=== PATIENT | female | born 1980 | race Caucasian/White ===

== ENCOUNTER 2025-04-11 14:01 | Emergency (ER) | payer MEDICAID ==
[~2025-04-11] VITALS: Ht 167.6 cm; Wt 68.0 kg
[2025-04-11 14:03] VITALS: O2SAT 97
[2025-04-11 14:54] LABS: *AMPHETAMINES SCREEN URINE PRESUMPTIVE POSITIVE (NEGATIVE); *BARBITURATES SCREEN URINE NEGATIVE (NEGATIVE); *BENZODIAZEPINES SCREEN URINE PRESUMPTIVE POSITIVE (NEGATIVE); *COCAINE SCREEN URINE NEGATIVE (NEGATIVE); CANNABINOID URINE SCREEN PRESUMPTIVE POSITIVE (NEGATIVE); ECSTASY MDMA SCREEN URINE NEGATIVE (NEGATIVE); METHADONE URINE SCREEN NEGATIVE (NEGATIVE); OPIATES URINE SCREEN NEGATIVE (NEGATIVE); PHENCYCLIDINE URINE SCREEN PRESUMTIVE POSITIVE (NEGATIVE)
[2025-04-11 15:28] LABS: BASOPHILS % 0.2 % (0.0-2.0); EOSINOPHILS % 0.0 % (0.0-5.0); HEMATOCRIT. 42.6 % (36.0-48.0); HEMOGLOBIN. 14.2 g/dL (12.0-16.0); LYMPHOCYTES % 9.9 % (20.0-50.0); MEAN PLATELET VOLUME 7.1 fl (7.4-10.4); MONOCYTES % 2.5 % (2.0-8.0); NEUTROPHILS % 87.4 % (40.0-76.0); PLATELET 299 x1000/uL (130-400); RED BLOOD CELL COUNT 4.31 mill/uL (4.2-5.4); RED CELL DISTRIBUTION WIDTH 14.0 % (11.6-14.6)
[2025-04-11 15:44] LABS: CREATININE 0.8 mg/dL (0.6-1.0); ETHANOL BLOOD 79 mg/dL (<10); UREA NITROGEN BLOOD 11 mg/dL (9-23)
[2025-04-11] MEDS: LORAZEPAM 2MG/ML UD SYRINGE IM SCH (16:05)
[2025-04-11] MEDS: KETAMINE HCL 50 MG/ML 10ML IM ONE (17:51)
[2025-04-11 23:10] LABS: HCG SCREEN NEGATIVE
[2025-04-12 11:33] VITALS: BP 116/86; PULSE 78; RESP 16; TEMP 36.6; O2SAT 100
[2025-04-13] MEDS ORDERED: ALBU18HF2 IH (15:53)
== END 2025-04-12 11:35 | disposition home or self-care (01) ==
LOC: ER 14:01
DX: R45.851 Suicidal ideations (principal); F19.10 Other psychoactive substance abuse, uncomplicated; F20.9 Schizophrenia, unspecified; J45.909 Unspecified asthma, uncomplicated; Z88.5 Allergy status to narcotic agent; Z79.899 Other long term (current) drug therapy; Z20.822 Contact with and (suspected) exposure to COVID-19
CPT/HCPCS: 80305; 80048; 80307; 80329; 80320; 84703; 85025; 36415; 93005; 96372; 99285; 87426; J3490; J2060; G0480

== ENCOUNTER 2025-04-13 13:48 | Emergency (ER) | payer MEDICAID ==
[~2025-04-13] VITALS: Ht 167.6 cm; Wt 68.0 kg
[2025-04-13 13:56] VITALS: O2SAT 100
[2025-04-13] MEDS ORDERED: ALBU18HF2 IH (15:53)
[2025-04-13 16:21] VITALS: BP 115/80; PULSE 75; RESP 17; TEMP 37; O2SAT 100
== END 2025-04-13 15:50 ==
LOC: ER 13:48
DX: J45.909 Unspecified asthma, uncomplicated (principal); Z76.0 Encounter for issue of repeat prescription; Z88.5 Allergy status to narcotic agent
CPT/HCPCS: 99281

== ENCOUNTER 2025-08-20 13:07 | Emergency (ER) | payer OTHER ==
[~2025-08-20] VITALS: Ht 167.6 cm; Wt 74.0 kg
[~2025-08-20 13:07] MED LIST: ALBU18HF2 IH
[2025-08-20 13:12] VITALS: O2SAT 100
[2025-08-20] MEDS: PENICILLIN G BENZATHINE 2,400,000 UNITS/4ML SYR IM ONE (16:14)
[2025-08-20 16:42] VITALS: BP 115/76; PULSE 95; RESP 17; TEMP 36.9; O2SAT 100
== END 2025-08-20 16:44 | disposition home or self-care (01) ==
LOC: ER 13:07
DX: A64 Unspecified sexually transmitted disease (principal); J45.909 Unspecified asthma, uncomplicated; Z88.5 Allergy status to narcotic agent; Z90.89 Acquired absence of other organs
CPT/HCPCS: 99283; 86592; 96372; J0561